=== PATIENT | female | born 1965 | race Asian ===

== ENCOUNTER 2019-05-04 20:49 | Outpatient (REF) | payer BC, SELFPAY ==
--- NOTE | 2019-05-04 11:20 | PAPFT_PTH ---
PATIENT: Mony Jimenez LOC: [facility] U#:[id number] AGE/SX: 53/F ROOM: RE05/04/[address]: Soraya Sharma : 1965 BED: DIS: 05/04/2019 SPEC #: [id number] RECD: 05/05/19 12:58 STATUS: MARY CARMEN CALVIN #: [id number] DANIEL: 05/04/19 11:[address]: Soraya Sharma DEPT: [facility] Cytology RECD BY: Shaunna Peterson ENTERED: 05/05/19 12:59 SP TYPE: PAPFT OTHR DR: Elaina Tolentino Tissues: 1 - CX/ENDOCX FOR PAP SMEARS Procedures: PAP THIN PREP/[facility] Screening HPV DNA PROBE Comments: [id number]
== END 2019-05-04 21:09 ==
LOC: NCHCN 20:49
PROVIDERS: PCP Nurse Practitioner Family; Visit Provider Internal Medicine
DX: Z00.00 Encounter for general adult medical examination without abnormal findings (principal); Z12.4 Encounter for screening for malignant neoplasm of cervix; Z11.51 Encounter for screening for human papillomavirus (HPV)
CPT/HCPCS: 88142; 87624

== ENCOUNTER 2022-11-23 16:44 | Outpatient (CLI) | payer BC, SELFPAY ==
--- NOTE | 2022-11-23 14:26 | DI.RAD_ITS ---
Exam(s) XR PELVIS AP EXAM: XR PELVIS AP CLINICAL HISTORY: RT HIP PAIN, M25.551. TECHNIQUE: 2D digital imaging was performed. COMPARISON: No exams were available for comparison FINDINGS: Single AP view of the pelvis No evidence of fracture in the pelvis and hips. No degenerative changes. Sacroiliac joints unremark able. Bone density is normal. No significant osseous lesions evident. IMPRESSION: No significant findings on this AP view the pelvis. DATA REPOSITORY: RADIATION DOSE DELIVERED:
--- NOTE | 2022-11-23 14:29 | DI.RAD_ITS ---
Exam(s) XR FEMUR RT EXAM: XR FEMUR RT CLINICAL HISTORY: RT HIP PAIN, M25.551. TECHNIQUE: 2D digital imaging was performed. COMPARISON: No exams were available for comparison FINDINGS: Two views-AP and lateral No evidence of fracture nor dislocation. Bone density normal. No osseous lesions. No radiopaque fo reign body. No hip joint space narrowing. No obvious knee joint effusion. Femoral condyles and tib ial plateau appear intact. IMPRESSION: No significant radiograph findings in the femur. DATA REPOSITORY: RADIATION DOSE DELIVERED:
== END 2022-11-23 17:04 ==
LOC: DI 16:44
PROVIDERS: PCP Student in an Organized Health Care Education/Training Program; Visit Provider Nurse Practitioner Family
DX: M25.551 Pain in right hip (principal)
CPT/HCPCS: 73552; 72170

== ENCOUNTER 2025-01-01 13:06 | Outpatient (REF) | payer MEDICAID, SELFPAY ==
[2025-01-01 14:38] LABS: Abs Immature Grans 0.01 10^3/uL (0.0-0.06); Absolute Basophil Count 0.05 10^3/uL (0.0-0.2); Absolute Eosinophil Count 0.04 10^3/uL (0.0-0.7); Absolute Lymphocyte Count 2.38 10^3/uL (1.2-3.4); Absolute Monocyte Count 0.36 10^3/uL (0.1-0.8); Absolute Neutrophil Count 3.27 10^3/uL (1.2-6.7); Basophils % 0.8 %; Eosinophils % 0.7 %; HCT 41.4 % (36.0-46.0); HGB 13.3 g/dL (11.2-15.7); Immature Grans % 0.2 %; MCH 29.9 pg (27.0-33.0); MCHC 32.1 % (32.0-36.0); MCV 93 fL (80-95); MPV 10.2 fL (8.0-11.0); Monocytes % 5.9 %; Neutrophils % 53.4 %; Platelet Count 212 10^3/uL (130-400); RBC 4.45 10^6/uL (3.93-5.22); RDW 12.2 % (11.7-14.6); WBC 6.11 10^3/uL (4.4-10.8)
[2025-01-01 15:20] LABS: ALT 21 U/L (14-59); AST 20 U/L (15-37); Albumin 4.1 g/dL (3.4-5.0); Alkaline Phosphatase 89 U/L (46-116); Anion Gap 8.8 mmol/L (3-11); BUN 11 mg/dL (7-18); Bilirubin, Total 0.6 mg/dL (0.2-1.0); CO2 30.2 mmol/L (21.0-32.0); CREATININE 0.7 mg/dL (0.55-1.02); Calcium 9.1 mg/dL (8.5-10.1); Chloride 106 mmol/L (98-107); Estimated GFR 98.95 (mL/min/1.73m2); Glucose 94 mg/dL (74-106); Potassium 3.9 mmol/L (3.5-5.1); Sodium 145 mmol/L (136-145); TSH (W/Ref FT4) 1.63 uIU/mL (0.36-3.74); Total Protein 7.1 g/dL (6.4-8.2); Vitamin D 25 Total 10 ng/mL (30-100)
== END 2025-01-01 13:07 | disposition home or self-care (01) ==
LOC: NCHCN 13:06
PROVIDERS: PCP Student in an Organized Health Care Education/Training Program; Visit Provider Family Medicine
DX: R10.13 Epigastric pain (principal); R53.81 Other malaise; R53.83 Other fatigue
CPT/HCPCS: 80053; 82306; 84443; 85025

== ENCOUNTER 2025-02-02 00:28 | Outpatient (CLI) | payer MEDICAID, SELFPAY ==
--- NOTE | 2025-02-02 | DI.MAMMO_ITS ---
Exam(s) MAMMO SCREENING EXAM: MAMMO SCREENING CLINICAL HISTORY: Z12.31 Screening. TECHNIQUE: Bilateral full field digital CC and MLO mammographic images were obtained with 3D tomosyn thesis and utilizing computer aided detection (CAD). COMPARISON: None. Last mammogram was 15 years ago. Patient does not remember where. FINDINGS: The fibroglandular tissue pattern is quite dense, this somewhat decreasing the sensitivity of the vero mogram for finding hidden underlying lesions. There are no CAD designations. In the left breast on the cc tomosynthesis views there is an asymmetric nodular density measuring 8 b y 5 mm located 2 cm in from the nipple, slightly medial of center. Further imaging of this recommend ed. There may also be another smaller nodule laterally in the same-left breast. The opposite-right breast there are no obvious significant focal findings. There are no malignant-appearing microcalcification groups in either breast There is no significant architectural distortion nor skin thickening-retraction. IMPRESSION: Dense bilateral fibroglandular tissue. No obvious radiographic evidence of malignancy in the right b reast. There are 2 possible nodules in the left breast. Spot compression CC views recommended as well as co mplete left breast ultrasound. BI-RADS Category 0 - Incomplete: Need additional imaging evaluation Breast Density - Category D - The breast are extremely dense, which lowers the sensitivity of the vero mography. Breast density Category C or D implies that the patient has dense breast tissue. Dense breast tissue can make it harder to find cancer on a mammogram. Dense breast tissue is also associated with an incr eased risk of breast cancer. This information about the result of the mammogram report was provided to the patient to raise their awareness. Use this report when you speak with the patient about their risks for breast cancer, which includes their family history. At that time, you may recommend additional screening tests (Ultrasoun d or MRI) as these tests may add significant information. A negative radiographic report should not delay biopsy if a dominant or clinically suspicious mass is present. Up to ten percent of cancers are not identified on mammography. A negative report may reinforce clinical impression. Adenosis and dense breasts may obscure an underlying neoplasm. False positive reports average 6 to 10%. Patient will receive a letter notifying them of these results.
== END 2025-02-02 00:48 ==
PROVIDERS: PCP Family Medicine; Visit Provider Family Medicine
DX: Z12.31 Encounter for screening mammogram for malignant neoplasm of breast (principal); R92.343 Mammographic extreme density, bilateral breasts
CPT/HCPCS: 77063; 77067

== ENCOUNTER 2025-02-09 00:36 | Outpatient (CLI) | payer MEDICAID, SELFPAY ==
--- NOTE | 2025-02-09 10:46 | DI.MAMMO_ITS ---
Exam(s) MG MAMMO SCREEN CALL BACK UNI US BREAST LT COMPLETE EXAM: MG MAMMO SCREEN CALL BACK UNI-LEFT DELETE LEFT BREAST ULTRASOUND CLINICAL HISTORY: 8 x 5 mm asymmetric nodular density 2 cm from nipple, lt. TECHNIQUE: Unilateral LEFT BREAST spot mammographic images obtained with 3D tomosynthesisand [employer] [facility] computer aided detection (CAD). . Complete LEFT breast Ultrasound was also performed, including all 4 quadrants, the retroareolar regio n, and the ipsilateral axilla. COMPARISON: Prior mammograms were reviewed. This additional imaging was performed due to findings described on the recent screening mammogram of 02/02/2025. FINDINGS: DIAGNOSTIC MAMMOGRAM: Additional mammographic views performed todaydoes not dissipate the previously described nodule seen on the recent screening mammogram. We proceeded with ultrasound COMPLETE LEFT BREAST ULTRASOUND: Ultrasound performed today reveals numerous lobulated wider than taller solid nodules which have the appearance of fibroadenomas.. At the 1 o'clock position there is an 11 x 3 mm solid slightly lobulated nodule which is probably a f ibroadenoma. Exhibits neutral through transmission. At the 3 o'clock position there is an 8 x 3 mm wider than taller lobulated solid nodule which is also probably a fibroadenoma. At the 6 o'clock position there is a 6 x 3 mm similar appearing solid nodule which is probably a fibr oadenoma. At the 9 o'clock position there is a 6 x 3 mm similar appearing nodule which is probably a fibroadeno ma. At the 10 o'clock position there is an 8 x 5 mm solid lobulated nodule which is also probably a fibro adenoma. Scanning of the ipsilateral axilla reveals no significant adenopathy. IMPRESSION: 1. There are multiple solid lobulated nodules in the left breast as described individually above and having the appearance of multiple fibroadenomas. Two of these are what was seen on the recent mammo gram. 2. As the next step I recommend complete ultrasound examination of the opposite-right breast to dete rmine size and number of possible fibroadenomas in the right breast and to determine if there is 1 of these that warrants biopsy. Findings and recommendations were discussed by myself with the patient today. BI-RADS Category 0 - Incomplete: Need additional imaging evaluation Breast Density - Category D - The breast are extremely dense, which lowers the sensitivity of the vero mography. Breast density Category C or D implies that the patient has dense breast tissue. Dense breast tissue can make it harder to find cancer on a mammogram. Dense breast tissue is also associated with an incr eased risk of breast cancer. This information about the result of the mammogram report was provided to the patient to raise their awareness. Use this report when you speak with the patient about their risks for breast cancer, which includes their family history. At that time, you may recommend additional screening tests (Ultrasoun d or MRI) as these tests may add significant information. A negative radiographic report should not delay biopsy if a dominant or clinically suspicious mass is present. Up to ten percent of cancers are not identified on mammography. A negative report may reinforce clinical impression. Adenosis and dense breasts may obscure an underlying neoplasm. False positive reports average 6 to 10%. Patient will receive a letter notifying them of these results.
== END 2025-02-09 00:56 ==
LOC: DI 00:36
PROVIDERS: PCP Family Medicine; Visit Provider Family Medicine
DX: Z12.31 Encounter for screening mammogram for malignant neoplasm of breast (principal); N60.22 Fibroadenosis of left breast
CPT/HCPCS: 76642; 77063; 77067

== ENCOUNTER 2025-02-22 00:31 | Outpatient (CLI) | payer MEDICAID, SELFPAY ==
--- NOTE | 2025-02-22 10:15 | DI.US_ITS ---
Exam(s) US BREAST RT COMPLETE EXAM: US BREAST RT COMPLETE CLINICAL HISTORY: to determine size and number of possible fibroadenomas in Rt breast TECHNIQUE: Ultrasound right breast performed using standard protocol. A complete right breast ultrasound was performed. All 4 quadrants of the right breast, the right axilla and right retroareolar regions were evaluated sonographically. COMPARISON: No exams were available for comparison FINDINGS: No solid or cystic masses, hypoechoic foci, areas of abnormal shadowing, or areas of skin thickening. IMPRESSION: 1. No sonographically suspicious finding in the right breast. 2. Yearly screening mammography is recommended on the right breast. A six-month follow-up left mammogram is requested for re-evaluation of the left breast nodules seen on the left breast ultrasound from 02/09/2025.. BI-RADS Category 3 - 6 month - Probably Benign Finding: Recommend follow-up imaging in 6 months DATA REPOSITORY:
== END 2025-02-22 00:51 ==
PROVIDERS: PCP Family Medicine; Visit Provider Family Medicine
DX: N60.21 Fibroadenosis of right breast (principal)
CPT/HCPCS: 76642

== ENCOUNTER → 2025-08-13 00:42 | Outpatient (CLI) | payer SELFPAY ==
--- NOTE | 2025-08-13 14:45 | DI.US_ITS ---
Exam(s) US BREAST LT COMPLETE MG MAMMO DIAGNOSTIC BI EXAM: MG MAMMO DIAGNOSTIC BI CLINICAL HISTORY: 6 MO F/U MAMMO, R92.8,LT BREAST NODULES. COMPARISON: US US BREAST LT COMPLETE from 02/09/2025 US US BREAST LT COMPLETE from 08/13/2025 TECHNIQUE: Craniocaudal and mediolateral oblique Full Field Digital Mammography views of both breasts with Computer Aided Diagnosis followed by Tomosynthesis and left breast ultrasound. FINDINGS: Mammography/Tomosynthesis: Today's exam was six-month follow-up of the left breast. The patient complained today of pain around the nipple in the right breast and a right mammogram was also performed. Right breast: Masses: None seen. Architectural Distortion: None seen. Microcalcifications: No suspicious pleomorphic-type are seen. Skin Thickening/Nipple Retraction: None. Left breast: Masses: Stable areas of circumscribed nodularity are noted in the left breast Architectural Distortion: None seen. Microcalcifications: No suspicious pleomorphic-type are seen. Skin Thickening/Nipple Retraction: None. Left breast US: Echotexture: Normal appearance of the glandular tissue. Shadowing: No suspicious foci. Cyst: None. Solid lesions: Stable appearance of smoothly marginated hypoechoic nodules. No suspicious masses. The previously noted nodule in the 9 o'clock position was not visualized today. Ductal dilation: None. Axilla: No evidence of adenopathy. IMPRESSION: 1. No evidence of malignancy is noted. Multiple left breast nodules have the appearance of fibroadenomas. 2. Unless there is more urgent need, follow-up screening mammography is recommended, as per [place] [employer] guidelines. BI-RADS Category 2 - Benign Findings Breast Density - Category D - The breast are extremely dense, which lowers the sensitivity of the mammography. Breast density Category C or D implies that the patient has dense breast tissue. Dense breast tissue can make it harder to find cancer on a mammogram. Dense breast tissue is also associated with an increased risk of breast cancer. This information about the result of the mammogram report was provided to the patient to raise their awareness. Use this report when you speak with the patient about their risks for breast cancer, which includes their family history. At that time, you may recommend additional screening tests (Ultrasound or MRI) as these tests may add significant information. A negative radiographic report should not delay biopsy if a dominant or clinically suspicious mass is present. Up to ten percent of cancers are not identified on mammography. A negative report may reinforce clinical impression. Adenosis and dense breasts may obscure an underlying neoplasm. False positive reports average 6 to 10%. Patient will receive a letter notifying them of these results.
== END ==
LOC: DI 00:42
PROVIDERS: PCP Family Medicine; Visit Provider Family Medicine
DX: R92.8 Other abnormal and inconclusive findings on diagnostic imaging of breast (principal); R92.313 Mammographic fatty tissue density, bilateral breasts
CPT/HCPCS: 76642; 77062; 77066; G0279